=== PATIENT | female | born 1925 | race African-American/Black ===

== ENCOUNTER → 2016-10-19 | Outpatient (CLI) | payer MEDICARE ==
--- NOTE | 2016-10-19 11:37 | USB ---
Reason for exam: additional evaluation requested from abnormal screening. History: Patient is postmenopausal. US Breast BILAT Right breast ultrasound includes all four quadrants, the retroareolar region and axilla. Finding demonstrates a 0.77 x 0.29 x 0.58cm mixed lesion at 9 o'clock and a 0.63 x 0.54 x 0.56cm mixed lesion at 9 o'clock. Left breast ultrasound includes all four quadrants, the retroareolar region and axilla. Finding demonstrates a 1.13 x 1.4 x 0.86cm solid, hypoechoic lesion at 2 o'clock. These results were verbally communicated with the patient and result sheet given to the patient on 10/19/16. ASSESSMENT: Suspicious, BI-RAD 4 RECOMMENDATION: Ultrasound core biopsy of the left breast. Called Dr. Lucas with mammographic findings and has scheduled an appointment for the patient for 10/31/16 at 1:[address] Cavazos. Biopsy scheduled for 10/26/16. PRELIMINARY REPORT CALLED AND FAXED TO DR. CAVAZOS ON 10/19/16 AT 300/TP.
--- NOTE | 2016-10-20 07:32 | MM ---
Reason for exam: clinical finding. Last mammogram was performed 12 years and 8 months ago. History: Patient is postmenopausal. Physical Findings: Nurse Summary: 1.5cm nodule in the left breast at 2 o'clock (nurse brandon). MG 3D Diag Mammo W/Cad KEN Bilateral CC and MLO view(s) were taken. Prior study comparison: February 18, 2004, bilateral screening mammogram. July 04, 2002, bilateral screening mammogram. There are scattered fibroglandular densities. Finding #1: There is a 16 mm spiculated oval mass in the upper outer quadrant, middle position of the left breast. Finding #2: There are typically benign vascular, round calcifications in the right breast. There is a tiny chronic nodularity in the right breast. These results were verbally communicated with the patient and result sheet given to the patient on 10/19/16. ASSESSMENT: Incomplete: need additional imaging evaluation, BI-RAD 0 RECOMMENDATION: Ultrasound of the left breast.
== END | disposition home or self-care (01) ==
LOC: RADMAMWWP 09:04
PROVIDERS: ATTEND Internal Medicine
DX: N63 Unspecified lump in breast (principal); R92.8 Other abnormal and inconclusive findings on diagnostic imaging of breast
CPT/HCPCS: 76641; G0204; G0279

== ENCOUNTER → 2016-10-26 | Day surgery (SDC) | payer MEDICARE ==
[~2016-10-26] MED LIST: BACITRACIN OINT 1 EACH PACKET TOPICAL ONE; LIDOCAINE 1% INJ 10MG/ML (20 ML MDV) ONE; SODIUM BICARB 4% 5 ML VIAL (0.48 MEQ/ML) ONE
--- NOTE | 2016-10-26 15:09 | USB ---
EXAMINATION TYPE: US biopsy breast LT DATE OF EXAM: 10/26/2016 2:46 PM HISTORY: Abnormal left breast ultrasound, mass. FINDINGS: Maximal barrier technique was utilized. The skin overlying a suitable path to the patient's mass was localized with ultrasound and the overlying skin prepped and draped. Ultrasound was utilized with sterile technique. Lidocaine was used for local anesthesia. A skin navneet was made with a scalpel. A 16-gauge needle was advanced under direct ultrasound guidance and core specimen obtained of the mass. Specimen submitted in formalin to Pathology. Clip deployed at the level of the mass. Following the procedure, hemostasis achieved and the patient is discharged in stable condition without complication. Postprocedure digital mammogram shows the clip at the level of the mass. IMPRESSION:STATUS POST ULTRASOUND GUIDED CORE BIOPSY OF left breast MASS, PATHOLOGY IS PENDING. THIS PROCEDURE IS PERFORMED BY THE UNDERSIGNED. Pathology Results: Malignant BREAST, LEFT, ULTRASOUND GUIDED CORE BIOPSY: INVASIVE CARCINOMA, PENDING IMMUNOHISTOCHEMICAL STAINS. ADDENDUM REPORT BREAST, LEFT, ULTRASOUND GUIDED CORE BIOPSY: INVASIVE DUCTAL CARCINOMA. Recommendation Surgical consult of the left breast. FAUSTO
--- NOTE | 2016-10-30 07:21 | MM ---
Reason for exam: additional evaluation requested from abnormal screening. Last mammogram was performed less than 1 month ago. History: Patient is postmenopausal. MG Diagnostic Mammo LT Wo CAD CC and LM view(s) were taken of the left breast. Prior study comparison: October 19, 2016, bilateral MG 3d diag mammo w/cad KEN. February 18, 2004, bilateral screening mammogram. ASSESSMENT: Post procedure mammogram for marker placement RECOMMENDATION: Surgical consultation of the left breast.
== END ==
LOC: RADUSWWP 11:47
PROVIDERS: ATTEND Surgery
DX: C50.912 Malignant neoplasm of unspecified site of left female breast (principal); R92.8 Other abnormal and inconclusive findings on diagnostic imaging of breast
CPT/HCPCS: 88305; 88342; 88341; 19083; G0206; A4648; J2001

== ENCOUNTER 2016-12-04 09:57 | Day surgery (SDC) | payer MEDICARE ==
[2016-11-30 15:37] VITALS: BMI 21.4
[~2016-12-04 09:57] MED LIST changes: -BACITRACIN OINT 1 EACH PACKET TOPICAL ONE; +DEXAMETHASONE SOD PHOSPHATE 10 MG/ML 1 ML VIAL IV ONE; +HEPARIN SODIUM,PORCINE 5,000 UNIT/ML 1 ML VIAL SQ ONE; +HYDROmorphone 1 MG/ML 1 ML SYRINGE IVP PRN; +LACTATED RINGERS 1,000 ML IV SCH; -LIDOCAINE 1% INJ 10MG/ML (20 ML MDV) ONE; +MIDAZOLAM 2 MG/2 ML VIAL IV PRN; +ONDANSETRON 4 MG/2 ML VIAL IVP ONE; +Pre Op ABX Message 1 EACH MISC MISCELLANE ONE; -SODIUM BICARB 4% 5 ML VIAL (0.48 MEQ/ML) ONE
[2016-12-04] MEDS ORDERED: LIDOCAINE 1% 20 ML VIAL (10MG/ML) FOR IV START INTRADERMA ONE (10:28)
[2016-12-04 10:29] LABS: Glucose,Whole Blood 119 mg/dL (75-99)
[2016-12-04] MEDS ORDERED: fentaNYL (PF) 50 MCG/ML 2 ML AMP ONE (10:58)
[2016-12-04] MEDS ORDERED: PROPOFOL 10 MG/ML 20 ML VIAL IV ONE (10:58)
[2016-12-04] MEDS ORDERED: ceFAZolin 2 GM in SODIUM CHLORIDE 0.9% 100 ML IVPB ONE (11:00)
[2016-12-04] MEDS ORDERED: BUPIVACAIN-EPI 0.25%-1:200,000 30 ML VIAL SQ ONE (11:24)
[2016-12-04 12:27] VITALS: RESP 16
[2016-12-04 12:32] LABS: Glucose,Whole Blood 125 mg/dL (75-99)
[2016-12-04 12:34] VITALS: TEMP 98.2
[2016-12-04 13:41] VITALS: BP 136/73; PULSE 71
--- NOTE | 2016-12-04 15:17 | MM ---
EXAMINATION TYPE: MG surgical specimen LT DATE OF EXAM: 12/04/2016 12:02 PM HISTORY: Invasive ductal carcinoma left breast Surgical specimen is submitted. Identified within the specimen is mass density with a microclip naga nguyen
--- NOTE | 2016-12-04 18:46 | P.OP ---
Date of Procedure: 12/04/16 Preoperative Diagnosis: Left breast cancer 2 o clock Postoperative Diagnosis: Same Procedure(s) Performed: Left breast lumpectomy Anesthesia: MAC, local Surgeon: Lidia Cavazos Estimated Blood Loss (ml): 5 Pathology: other Condition: stable Disposition: same day Indications for Procedure: 89 yrs old female with left breast cancer - palpable lesion at 2 o clock( upper outer quadrant). No palpable axillary lymphadenopathy. Informed consent obatined and plan for lumpectomy . Description of Procedure: An left breast US was performed to localize the left breast mass. The patient was brought to the operating room and placed in supine position with both arms out. IV sedation was given as per anesthesia team. The excess wire was cut and right breast was prepped using ChloraPrep. Sterile drapes were applied. A timeout was performed to verify correct patient, correct procedure and correct side. Patient was confirmed to receive perioperative IV antibiotics, heparin 5000 units subcutaneous injection for DVT prophylaxis and bilateral SCDs. A 6 cm elliptical skin incision was made along upper outher quadrant of left breast . Superior and inferior subcutaneous flaps were raised . A 4 cm circumferential breast tissue was removed around the wire . The specimen was then labeled with different colors as per the protocol. It was sent off as a specimen for pathology. The resulting defect was irrigated with normal saline and checked for hemostasis. The defect measured 6.5x4x3 cm. This was closed in 3 layers using interrupted sutures of 3-0 Vicryl followed by running subcuticular stitches of 4-0 Monocryl. Dermabond skin glue was applied. The sponge, instrument and needle count were correct 2. Phone confirmation received during surgery that the area of concern along with the clip was included in the specimen. Patient tolerated the procedure well and was taken to post anesthesia care unit in stable condition. Final Pathologic Diagnosis BREAST, LEFT, LUMPECTOMY: INVASIVE DUCTAL CARCINOMA AND DUCTAL CARCINOMA IN SITU , MARGINS NEGATIVE. Notes SURGICAL PATHOLOGY CANCER CASE SUMMARY - INVASIVE CARCINOMA OF THE BREAST Procedure: Excision with imaging guided localization. Lymph Node Sampling: Not applicable. Specimen Laterality: Left. Tumor Size: Greatest dimension of invasive carcinoma measures 1.4 cm. Histologic Type of Invasive Carcinoma: Invasive mammary carcinoma of no special type (ductal, not otherwise specified). Histologic Grade (Walton Histologic Score): Glandular (Acinar)/Tubular Differentiation: Score 3. Nuclear Pleomorphism: Score 3. Mitotic Rate: Score 1. Overall Grade: Grade 2 (total score 7). Ductal Carcinoma In Situ (DCIS): DCIS is present, positive for extensive intraductal component (EIC). Size (extent) of DCIS: Size of DCIS measures at least 1.2 cm by direct measurement. Nuclear Grade: Grade 2 (intermediate). Necrosis: Present, central (expansive "comedo" necrosis). Margins: Margins negative for invasive carcinoma and DCIS. Distance of Invasive Carcinoma from closest margin: 4 mm from purple (posterior ) and green (inferior) margins. Distance of DCIS from closest margin: 4 mm from purple (posterior) margin. Pathologic Staging (pTNM) Primary Tumor: Tumor greater than 10 mm but less than or equal to 20 mm in greatest dimension (pT1c). Regional Lymph Nodes: Regional lymph nodes cannot be assessed (pNX). Distant Metastasis: Not applicable.
== END 2016-12-04 14:27 | disposition home or self-care (01) ==
LOC: OR 09:57
PROVIDERS: ATTEND Surgery
DX: D05.12 Intraductal carcinoma in situ of left breast (principal); Z17.0 Estrogen receptor positive status [ER+]; I10 Essential (primary) hypertension; G40.909 Epilepsy, unspecified, not intractable, without status epilepticus; Z95.0 Presence of cardiac pacemaker; Z86.73 Personal history of transient ischemic attack (TIA), and cerebral infarction without residual deficits; J44.9 Chronic obstructive pulmonary disease, unspecified; I13.0 Hypertensive heart and chronic kidney disease with heart failure and stage 1 through stage 4 chronic kidney disease, or unspecified chronic kidney disease; I50.22 Chronic systolic (congestive) heart failure; N18.9 Chronic kidney disease, unspecified; E11.22 Type 2 diabetes mellitus with diabetic chronic kidney disease; Z79.84 Long term (current) use of oral hypoglycemic drugs; Z79.82 Long term (current) use of aspirin; Z79.51 Long term (current) use of inhaled steroids; Z79.899 Other long term (current) drug therapy; Z88.5 Allergy status to narcotic agent; F39 Unspecified mood [affective] disorder
CPT/HCPCS: 88307; 19301; J1644; J1100; J0690; J2405; J3010; J2704; 76098